=== PATIENT | female | born 1995 | race Caucasian/White ===

== ENCOUNTER 2018-09-22 22:18 | Emergency (ER) | payer SELFPAY ==
[2018-09-22] MEDS ORDERED: Ondansetron ODT 4 MG TAB ONE (22:46)
[2018-09-22 23:16] LABS: Pregnancy Test - Urine (BHCG) Negative (Negative); Pregu Control Background? CLEAR/WHITE (CLR/WHITE); Pregu Control Bar Appear? YES (CONTROL BAR); Specific Gravity 1.031 (1.002-1.036)
== END 2018-09-22 23:33 | disposition home or self-care (01) ==
LOC: SCSER 22:18
DX: K52.9 Noninfective gastroenteritis and colitis, unspecified (principal)
CPT/HCPCS: 81025; 99284; Q0162

== ENCOUNTER 2022-09-27 20:02 | Emergency (ER) | payer SELFPAY ==
[2022-09-27] MEDS ORDERED: Orphenadrine Citrate 60 MG/2 ML VIAL ONE (21:52)
[2022-09-27] MEDS ORDERED: Diazepam 5 MG TAB ONE (23:11)
[2022-09-27] MEDS ORDERED: HYDROcodone/Acetaminophen 5/325 mg Tablet ONE (23:41)
== END 2022-09-27 20:57 | disposition home or self-care (01) ==
LOC: ERS 20:02
DX: M54.50 Low back pain, unspecified (principal)
CPT/HCPCS: 96372; 99283; J2360